=== PATIENT | male | born 1975 ===

== ENCOUNTER 2019-01-10 10:44 | Inpatient (IN) | payer MEDICAID ==
--- NOTE | 2019-01-10 10:53 | ED PDOC ---
Arrival/HPI - General Chief Complaint: Psychiatric Evaluation Time Seen by Provider: 01/10/19 10:45 Historian: Patient - History of Present Illness Narrative History of Present Illness (Text): 01/10/19 10:51 43 year old male with PMH of depression and bipolar disorder presents to the emergency department as psychiatric transfer from [facility] for admission to the psychiatric floor. Pt accepted by psychiatrist Dr. Abdullahi cosby. Pt has been having thoughts of hurting himself and others for the last few months and has a plan but is unwilling to disclose. He has no outpatient psychiatric followup at this time. Pt has no physical complaints. Denies substance abuse, hallucinations, fever, chills, abdominal pain, nausea, vomiting, chest pain, SOB, headache, or any other associated symptoms. Past Medical History - Provider Review Nursing Documentation Reviewed: Yes - Cardiac Hx Cardiac Disorders: No - Pulmonary Hx Respiratory Disorders: No - Neurological Hx Neurological Disorder: No - HEENT Hx HEENT Disorder: No - Renal Hx Renal Disorder: No - Endocrine/Metabolic Hx Endocrine Disorders: No - Hematological/Oncological Hx Blood Disorders: No - Integumentary Hx Dermatological Disorder: No - Musculoskeletal/Rheumatological Hx Musculoskeletal Disorders: No - Gastrointestinal Hx Gastrointestinal Disorders: No - Genitourinary/Gynecological Hx Genitourinary Disorders: No - Psychiatric Hx Bipolar Disorder: Yes Hx Depression: Yes Hx Substance Use: Yes Family/Social History - Physician Review Nursing Documentation Reviewed: Yes Family/Social History: No Known Family HX Smoking Status: Former Smoker Hx Alcohol Use: Yes Frequency of alcohol use: Socially Hx Substance Use: Yes Allergies/Home Meds Allergies/Adverse Reactions: Allergies No Known Allergies Allergy (Verified 01/10/19 10:48) Home Medications: Home Meds Medication Instructions Recorded Confirmed No Known Home Med 01/10/19 01/10/19 Review of Systems - Review of Systems Constitutional: Normal. absent: Fatigue, Fevers Eyes: Normal. absent: Vision Changes, Photophobia ENT: Normal. absent: Sore Throat, Sinus Congestion Respiratory: Normal. absent: SOB, Cough Cardiovascular: Normal. absent: Chest Pain, Palpitations Gastrointestinal: Normal. absent: Abdominal Pain, Nausea, Vomiting Genitourinary Male: Normal. absent: Dysuria, Frequency Musculoskeletal: Normal. absent: Back Pain, Neck Pain Skin: Normal. absent: Rash, Skin Lesions, Laceration, Abscess Neurological: Normal. absent: Headache, Dizziness Psychiatric: Depression, Suicidal Ideation Physical Exam Vital Signs Reviewed: Yes Temperature: Afebrile Blood Pressure: Normal Pulse: Regular Respiratory Rate: Normal Appearance: Positive for: Well-Appearing, Non-Toxic, Comfortable Pain Distress: None Mental Status: Positive for: Alert and Oriented X 3 - Systems Exam Head: Present: Atraumatic, Normocephalic Pupils: Present: PERRL Extroacular Muscles: Present: EOMI Conjunctiva: Present: Normal Mouth: Present: Moist Mucous Membranes Neck: Present: Normal Range of Motion. No: Meningeal Signs Respiratory/Chest: Present: Clear to Auscultation, Good Air Exchange. No: Respiratory Distress, Accessory Muscle Use Cardiovascular: Present: Regular Rate and Rhythm, Normal S1, S2, Peripheal Pulses Present Abdomen: Present: Normal Bowel Sounds. No: Tenderness, Distention, Peritoneal Signs, Rebound, Guarding Back: Present: Normal Inspection. No: CVA Tenderness Upper Extremity: Present: Normal Inspection, Normal ROM, NORMAL PULSES, Neurovascularly Intact, Capillary Refill < 2s. No: Cyanosis, Edema, Temperature Abnormalties Lower Extremity: Present: Normal Inspection, NORMAL PULSES, Normal ROM, Neurovascularly Intact, Capillary Refill < 2 s. No: Edema, Temperature Abnorma lties Neurological: Present: GCS=15, CN II-XII Intact, Speech Normal, Motor Func Grossly Intact, Normal Sensory Function, Gait Normal Skin: Present: Warm, Dry, Normal Color. No: Rashes Psychiatric: Present: Alert, Oriented x 3, Depressed Mood, Suicidal Ideation, Homicidal Ideation Medical Decision Making ED Course and Treatment: Initial Plan: * Chart Review 10:55 Reviewed diagnostic testing, CXR, EKG from [facility]. No acute findings. Patient has no physical complaints at this time. Patient is medically cleared for psychiatric admission. - Lab Interpretations I have reviewed the lab results: Yes Disposition/Present on Arrival - Present on Arrival Any Indicators Present on Arrival: No History of DVT/PE: No History of Uncontrolled Diabetes: No Urinary Catheter: No History of Decub. Ulcer: No History Surgical Site Infection Following: None - Disposition Have Diagnosis and Disposition been Completed?: Yes Diagnosis: Depression, Suicidal ideation Disposition: HOME/ ROUTINE Disposition Time: 11:00 Condition: STABLE
[2019-01-10 10:54] VITALS: O2SAT 96
[2019-01-10] MEDS ORDERED: Magnesium Hydroxide Susp 30 ml UD PO PRN (12:26)
[2019-01-10] MEDS ORDERED: Alum-Mag Hydrox-Simethicone Susp (30 mL) PO PRN (12:26)
[2019-01-10] MEDS ORDERED: DiphenhydrAMINE 50 mg/ml Inj IM PRN (12:33)
[2019-01-10 14:27] VITALS: BMI 21.2
[2019-01-10] MEDS: Amoxicillin-Clav 500-125 mg Tab PO SCH ×2 (15:46→22:05)
[2019-01-10] MEDS: Promethazine DM 6.25 mg-15 mg/5 ml Syrup PO PRN (15:48)
--- NOTE | 2019-01-10 17:04 | PCM.BM ---
<FranciscoCarlito - Last Filed: 01/10/19 17:01> Treatment Plan Problems - Problems identified on initial assessmt Anxiety Related to Substance Abuse Date Initiated: 01/10/19 Time Initiated: 13:00 Assessment reference: NA Status: Active Priority: 1 Feelings of Worthlessness Date Initiated: 01/10/19 Time Initiated: 13:00 Assessment reference: NA Status: Active Priority: 3 Hopelessness/Helplessness Date Initiated: 01/10/19 Time Initiated: 13:00 Assessment reference: NA Status: Active Priority: 2 Altered Sleep Patterns Date Initiated: 01/10/19 Time Initiated: 13:00 Assessment reference: NA Status: Active Priority: 4 Ineffective Coping Date Initiated: 01/10/19 Time Initiated: 13:00 Assessment reference: NA Status: Active Priority: 5 Treatment assets and liabiliti Patient Assests: cooperative, negotiates basic needs, cognitively intact, good interpersonal skills Patient Liabilities: poor support system, substance abuse, medical problems - Milieu Protocol Maintain good personal hygiene: daily Encourage regular showers, daily Remind patient to perform daily oral care, every shift Assist patient to perform ADL's Maintain personal safety: every shift Educate patient to report safety concerns to staff, every shift Monitor environment for contraband/sharps Medication safety: Monitor for expected outcome, potential side effects: every shift, Assess barriers to learning: every shift, Assess readiness for medication education: every shift Family Contact Family involvement: Famliy/SO not involved Family contact: Patient declines to allow family contact at present - Goals for Treatment Patient goals for treatment: to reduce racing thoughts which drive patient to hurt self with drugs. Discharge/Continuing Care - Education Needs Education Needs: Patient Medication, Patient Diagnosis/Disease Process, Patient Coping Skills, Patient Anger Management skills, Patient Placement options, Patient Community resources, Patient Activities of Daily Living, Patient Pain, Patient Nutrition, Patient Uses of Medical Equipment, Patient Health Practices/Safety, Patient Personal Hygiene/Grooming, Patient Aftercare Safety Plan - Discharge Discharge Criteria: Tolerates medication w/o severe side effects <Agnieszka Leyva - Last Filed: 01/11/19 11:56> Family Contact Family involvement: Famliy/SO not involved <Amanda Lafleur - Last Filed: 01/11/19 15:18> - Diagnosis (1) Bipolar disorder Status: Acute Interventions: 01/11/19 15:17 Psychoeducation Psychopharmacology/adjustment of medications as needed/ monitoring possible side effects Monitor blood level of mood stabilizers Evaluate pt on daily basis Compliance with medications and follow up appointments Suicide and homicide risk assessment and prevention, coping strategies, safety plan Relapse prevention Reduction of symptoms Improve functional status Family involvement As outpatient: cognitive behavioral therapy (2) Opioid use disorder Status: Acute Interventions: 01/11/19 15:17 Maintaining sobriety Relapse prevention Possible rehabilitation Motivational interviewing 12-step programs: AA meetings
--- NOTE | 2019-01-11 00:32 | CON ---
DATE: 01/10/2019 I was called to the Psychiatric unit to see this young man medically. HISTORY OF PRESENT ILLNESS: He has got multiple issues besides having a very nasty cough. He is bipolar, suicidal, depressed, heroin abuse history, insomnia, hepatitis C history. I believe he wanted to talk, but I did the best I could. He is depressed and suicidal. He was sent over from another hospital I understand. He is a 43-year-old white man with tattoos all over his body and face. PAST MEDICAL HISTORY: He has a past medical history of depression, bipolar. He came from [facility] about thoughts of hurting himself. Never had outpatient followup. He does deny substance abuse at this time. No hallucinations. He does have a very bad cough with congestion. He is depressed, bipolar, history of substance abuse. FAMILY HISTORY: Unknown family history. SOCIAL HISTORY: A former smoker. He still drinks alcohol and substance abuse as of now he tells us. ALLERGIES: NO KNOWN ALLERGIES. MEDICATIONS: No known home medications. He is not taking anything. REVIEW OF SYSTEMS: He is just not feeling well. He is not sure if he has fever or sweats, or just chills , but he is not feeling well. No vision or hearing changes. No sore throat, congestion. He has got cough with lots of phlegm. No chest pain or palpitations. No nausea, vomiting, constipation or diarrhea. No problems urinating. No back pain or neck pain. No rashes or ulcers that he knows of. No headache or dizziness. He is depressed. He is suicidal. PHYSICAL EXAMINATION: GENERAL: He is asking to take a shower as we speak, he will let me finish though. He is in his room, a little jittery. He is nontoxic, comfortable. A very big cough. Alert and oriented x3. VITAL SIGNS: He has 99.3 temp, 86 pulse, 109/65 blood pressure, 18 respiratory rate, and 96% O2 sat on room air. HEENT: Head is atraumatic and normocephalic. Extraocular muscles are intact. Pupils reactive to light and accommodation. Throat is red, dry. NECK: Supple. No JVD. No meningeal signs. LUNGS: Congested bilaterally, changes with cough, sounds like a very bad bronchitis. HEART: Regular rate. Normal S1, S2. ABDOMEN: Soft, nontender. Positive bowel sounds. No guarding, no rebound or CVA tenderness. EXTREMITIES: No edema. SKIN: He has got multiple tattoos all over his body. Also tattoos on his face. NEUROLOGIC: GCS is 15. Cranial nerves II through XII grossly intact. Normal motor function. Tongue is midline. He can close his right eye, he can clench his teeth. Alert and oriented x3. PSYCHIATRIC: He is very depressed. He tells me he is suicidal, but not homicidal. LABORATORY DATA: He has no lab tests. I have ordered lab tests. MEDICATIONS: He is currently on Ativan, Benadryl, Catapres, Haldol, Maalox, milk of magnesia, Phenergan DM, and Augmentin, which I added, Seroquel, Tylenol. ASSESSMENT: He has suicidal ideation, depression, insomnia, upper respiratory infection versus bronchitis, bipolar. He has started the psychiatric medications, he is also on Augmentin and Phenergan. PLAN: I am checking his labs tomorrow and encourage with him to eat and participate. Hopefully he will start to feel better soon. Juice Champagne DO MTDJatin
[2019-01-11] MEDS: Amoxicillin-Clav 500-125 mg Tab PO SCH ×3 (05:24→21:49)
[2019-01-11 07:59] LABS: HEMOGLOBIN 15.6 g/dL (14.0-18.0); MEAN CELL VOLUME 85.2 fl (80.0-105.0); MEAN CORPUSCULAR HEMOGLOBIN 28.1 pg (25.0-35.0); MEAN PLATELET VOLUME 8.9 fl (7.0-11.0); RBC 5.55 10^6/uL (3.5-6.1); RED CELL DISTRIBUTION WIDTH 14.7 % (11.5-14.5); WHITE BLOOD COUNT 10.2 10^3/uL (4.5-11.0)
[2019-01-11 08:08] LABS: ALBUMIN 4.7 g/dL (3.0-4.8); AST/SGOT 27 U/L (17-59); BLOOD UREA NITROGEN 17 mg/dL (7-21); GFR NON-AFRICAN AMERICAN > 60; GLUCOSE,FASTING 106 mg/dL (65-110); HDL CHOLESTEROL 45 mg/dL (29-60)
[2019-01-11 08:11] LABS: ALT/SGPT < 6 U/L (7-56)
[2019-01-11 08:19] LABS: LDL CHOLESTEROL 78 mg/dL (0-129)
[2019-01-11] MEDS: Promethazine DM 6.25 mg-15 mg/5 ml Syrup PO PRN (08:39)
--- NOTE | 2019-01-11 12:55 | PN ---
DATE: 01/11/2019 SUBJECTIVE: I saw him in the psychiatric floor. He slept well. He is still not doing well overall. He has got suicidal ideation, bipolar, and he has got a very bad upper respiratory infection. He is also depressed. He is currently on Ativan, Augmentin, Benadryl, Catapres, Haldol, Maalox, milk of magnesia, Nicoderm patch, Phenergan, Seroquel, and Tylenol. He only had one dose of Augmentin that was yesterday. Hopefully, he will get two today and start to improve. PHYSICAL EXAMINATION: VITAL SIGNS: He has a 97.3 temperature, 84 pulse, 105/75 blood pressure, and 18 respiratory rate. HEENT: Atraumatic, normocephalic. Throat is mildly red. HEART: Regular rate. LUNGS: Congested bilaterally like a bad bronchitis sound. ABDOMEN: Soft, nontender, positive bowel sounds. EXTREMITIES: No edema. He has got tattoos all over his body and face. LABORATORY DATA: He has a 10.2 white count, 15.6 hemoglobin, 47.3 hematocrit with 214 platelets. Sodium 142, potassium 4.3, BUN 17, creatinine 0.9, GFR is greater than 60, sugar is 106. Calcium is 10. Total bili is 0.4, AST is 27, AST is 6, alk phos 85, total protein is 7.6, albumin 4.7, globulin 4.9, triglycerides 74, cholesterol 147, LDL is 78, HDL is 45, TSH is 1.94. ASSESSMENT AND PLAN: As per Psychiatry, we will continue with aggressive treatment and care, work on his depression and suicidal thoughts and hopefully get his bronchitis improved. Juice Champagne DO
--- NOTE | 2019-01-11 15:17 | PCM.PSYCH ---
Initial Psychiatric Evaluation - Initial Psychiatric Evaluation Type of Admission: Voluntary Legal Status: Capacity Chief Complaint (in patient's own words): "I constantly feel hopeless, I had suicidal thoughts" Patient's Reaction to Hospitalization: Patient was admitted for evaluation stabilization of depressive symptoms, irritability, angry feelings, possible suicidal ideation. History of Present Illness and Precipitating Events: Shortly, patient is 43yo male with reported h/o bipolar disorder, heroin use dis order, treated off psychiatric admissions and suicidal attempts, patient also has history of incarcerations, currently on probation for drug possession, patient was transferred from [facility] for evaluation and stabilization of depressive symptoms and possible suicidal ideations, patient requires further evaluation and stabilization and medication management. Patient was seen today at the treatment team meeting, patient presented with acceptable personal hygiene, good ADLs, has multiple tattoos on his face, appears to carry, but handle interview relatively well, no agitation or aggressi on but patient was providing with "yes or no" answers only, wanted to finish interview as fast as possible. Patient reported that he was sober for past 3 weeks, patient reported that he relapsed on heroin last , January 07, patient reported that he cannot withdrawing from heroin now. pt reported that he has h/o using via IV and snorting, "I used more than 10 bags a day.." Patient denies alcohol consumption, denied any other drug use, reported that he smokes about 1 to 2 packs of cigarettes a day, counseling provided. Patient reported that he was feeling depressed, hopeless, helpless, worthless and guilty, she also reported that he had suicidal ideation with no clear plan or intent to kill himself, patient reported that he has difficulty to fall asleep and to stay asleep. Patient also reported that he constantly feels angry, irritable, "it is irritating even when somewone is eating" Patient denied hearing voices, denied hearing things, denied paranoid ideations, patient does not appear to be psychotic but guarded. As per nursing report patient has history of hearing command type hallucinations "kill self, to help others". Patient reports feeling anxious. Patient reported about 4-5 previous psych admissions, last was in [facility] in [place] one year ago due to having suicidal ideation. Patient reports he only takes medications when in shelter or [facility]ci. Patient reports he was last in shelter 2 months ago for 8 days. Patient reports he's on probation. Patient reports his aboriginal liaison officer is aware that he's hospitalized. Medical history: Patient reports having Hep C and does not have any physical symptoms from it. Patient reports having no other medical problems. Patient was seen by Dr. Champagne, was prescribed medication for cough. Family h/o: pt lost mother to suicide when patient was [age] years old, plus patients sister of overdose three years ago. 01/11/19 07:30 01/11/19 07:30 Lab Results 01/11/19 07:30: WBC 10.2, RBC 5.55, Hgb 15.6, Hct 47.3, MCV 85.2, MCH 28.1, MCHC 33.0, RDW 14.7 H, Plt Count 214, MPV 8.9 01/11/19 07:30: TSH 3rd Generation 1.94 01/11/19 07:30: Sodium 142, Potassium 4.3, Chloride 105, Carbon Dioxide 26, Anion Gap 16, BUN 17, Creatinine 0.9, Est GFR ( Amer) > 60, Est GFR (Non- Af Amer) > 60, Random Glucose 106, Fasting Glucose 106, Calcium 10.0, Total Bilirubin 0.4, AST 27, ALT < 6 L, Alkaline Phosphatase 85, Total Protein 9.6 H, Albumin 4.7, Globulin 4.9, Albumin/Globulin Ratio 1.0 L, Triglycerides 74, Cholesterol 147, LDL Cholesterol Direct 78, HDL Cholesterol 45 Vital Signs Temp Pulse Resp BP Pulse Ox 01/11/19 07:00 97.3 F L 111 H 18 105/75 01/10/19 15:57 84 118/69 01/10/19 13:14 89 109/65 01/10/19 11:40 98.8 F 89 20 109/65 01/10/19 10:52 99.3 F 86 18 119/59 L 96 The patient failed the outpatient lower level of care: Yes Current Medications: Active Medications Generic Name Dose Route Start Last Admin Trade Name Freq PRN Reason Stop Dose Admin Acetaminophen 650 mg 01/10/19 12:26 Tylenol 325mg Tab PO Q6H PRN Pain, moderate (4-7) Al Hydrox/Mg Hydrox/Simethicone 30 ml 01/10/19 12:26 Maalox Plus 30 Ml PO DAILY PRN Indigestion / Heartburn Amoxicillin/Clavulanate Potassium 1 tab 01/10/19 14:30 01/11/19 05:24 Augmentin 500 Mg-125 Mg Tab PO 1 tab Q8 ADAM Administration Protocol Clonidine HCl 0.1 mg 01/10/19 12:27 01/10/19 13:14 Catapres PO 0.1 mg Q8H PRN Administration Withdrawal Symptoms Diphenhydramine HCl 50 mg 01/10/19 12:29 01/10/19 13:14 Benadryl PO 50 mg Q6H PRN Administration Side Effects, Allergy Symptoms Diphenhydramine HCl 50 mg 01/10/19 12:33 Benadryl IM Q6H PRN Side Effects Haloperidol 5 mg 01/10/19 12:39 Haldol PO Q6H PRN Agitation Protocol Haloperidol Lactate 5 mg 01/10/19 12:41 Haldol IM Q6H PRN Severe Agitation Protocol Lorazepam 1 mg 01/10/19 12:30 01/11/19 05:31 Ativan PO 1 mg Q6H ADAM Administration Protocol Lorazepam 2 mg 01/10/19 12:35 01/10/19 15:47 Ativan PO 2 mg Q6H PRN Administration Anxiety Protocol Lorazepam 2 mg 01/10/19 12:37 Ativan IM Q6H PRN Severe Anxiety,SevereAgitation Protocol Magnesium Hydroxide 30 ml 01/10/19 12:26 Milk Of Magnesia PO DAILY PRN Constipation Nicotine 1 patch 01/10/19 17:27 01/11/19 08:35 Nicoderm Cq TD 1 patch DAILY ADAM Administration Promethazine HCl/Dextromethorphan 5 ml 01/10/19 14:29 01/11/19 08:39 Phenergan Dm Syrup PO 5 ml Q6H PRN Administration Cough Quetiapine Fumarate 25 mg 01/10/19 12:24 01/11/19 08:35 Seroquel PO 25 mg BID ADAM Administration Protocol Quetiapine Fumarate 50 mg 01/10/19 22:00 01/10/19 22:04 Seroquel PO 50 mg HS ADAM Administration Protocol Quetiapine Fumarate 50 mg 01/10/19 12:58 Seroquel PO HS PRN Insomnia Protocol Present on Admission - Present on Admission Any Indicators Present on Admission: No History of DVT/PE: No History of Uncontrolled Diabetes: No Urinary Catheter: No Decubitus Ulcer Present: No Review of Systems - Review of Systems Systems not reviewed;Unavailable: Acuity of Condition - Constitutional Constitutional: As Per HPI - EENT Eyes: As Per HPI Ears: As Per HPI Nose/Mouth/Throat: As Per HPI - Cardiovascular Cardiovascular: As Per HPI - Respiratory Respiratory: As Per HPI - Gastrointestinal Gastrointestinal: As Per HPI - Genitourinary Genitourinary: As Per HPI - Reproductive: Male Reproductive:Male: As Per HPI - Musculoskeletal Musculoskeletal: As Per HPI - Integumentary Integumentary: As Per HPI - Neurological Neurological: As Per HPI - Psychiatric Psychiatric: As Per HPI - Endocrine Endocrine: As Per HPI - Hematologic/Lymphatic Hematologic: As Per HPI Past Patient History - Past Psychiatric History Previous Treatment History: Inpatient Prior Professional Help: See HPI Prior Psychiatric Treatment: See HPI At what hospital: See HPI Duration: See HPI Nature of Treatment: See HPI Explanation of prior treatment: See HPI - PSYCHIATRIC Hx Anxiety: Yes Hx Bipolar Disorder: Yes Hx Depression: Yes Hx Substance Use: Yes - CARDIAC Hx Cardiac Disorders: No - PULMONARY Hx Respiratory Disorders: No - NEUROLOGICAL Hx Neurological Disorder: No - HEENT Hx HEENT Problems: No - RENAL Hx Chronic Kidney Disease: No - ENDOCRINE/METABOLIC Hx Endocrine Disorders: No - HEMATOLOGICAL/ONCOLOGICAL Hx Blood Disorders: No - INTEGUMENTARY Hx Dermatological Problems: No - MUSCULOSKELETAL/RHEUMATOLOGICAL Hx Musculoskeletal Disorders: No - GASTROINTESTINAL Hx Gastrointestinal Disorders: No - GENITOURINARY/GYNECOLOGICAL Hx Genitourinary Disorders: No - SURGICAL HISTORY Hx Surgeries: No - Medical/Surgical History Reviewed & confirmed: by pr Meds Allergies/Adverse Reactions: Allergies Allergy/AdvReac Type Severity Reaction Status Date / Time No Known Allergies Allergy Verified 01/10/19 12:50 Mental Status Examination - Personal Presentation Personal Presentation: Looks stated age - Affect Affect: Constricted, Flat - Motor Activity Motor Activity: Psychomotor Retardation - Reliability in Providing Information Reliability in Providing Information: Poor, due to altered mood - Speech Speech: Organized - Mood Mood: Depressed, Anxious - Formal Thought Process Formal Thought Process: No Impairment - Obsessions/Compulsions Obsessions: No Compulsions: No - Cognitive Functions Orientation: Person, Place, Situation Sensorium: Alert Attention/Concentration: Easily distracted Abstract Thinking: [place] Estimate of Intelligence: Average Judgement: Intact, as evidence by: Insight regarding need for hospitalization - Risk Risk: Self-mutilation, Diminished functioning - Strength & Assets Inventory Strength & Assets Inventory: Life experience, Cooperative - Limitations Limitations: Other (Noncompliance with medications, poor social support) Psychiatric Physical Exam - Physical Exam Reviewed and confirmed: Emergency Department Physical Exam Results - Vital Signs Recent Vital Signs: Last Vital Signs Temp 97.3 F L 01/11/19 07:00 Pulse 111 H 01/11/19 07:00 Resp 18 01/11/19 07:00 BP 105/75 01/11/19 07:00 Pulse Ox 96 01/10/19 10:52 - Labs Result Diagrams: 01/11/19 07:30 01/11/19 07:30 Labs: Laboratory Results - last 24 hr 01/11/19 01/11/19 01/11/19 07:30 07:30 07:30 WBC 10.2 RBC 5.55 Hgb 15.6 Hct 47.3 MCV 85.2 MCH 28.1 MCHC 33.0 RDW 14.7 H Plt Count 214 MPV 8.9 Sodium 142 Potassium 4.3 Chloride 105 Carbon Dioxide 26 Anion Gap 16 BUN 17 Creatinine 0.9 Est GFR ( Amer) > 60 Est GFR (Non-Af Amer) > 60 Random Glucose 106 Fasting Glucose 106 Calcium 10.0 Total Bilirubin 0.4 AST 27 ALT < 6 L Alkaline Phosphatase 85 Total Protein 9.6 H Albumin 4.7 Globulin 4.9 Albumin/Globulin Ratio 1.0 L Triglycerides 74 Cholesterol 147 LDL Cholesterol Direct 78 HDL Cholesterol 45 TSH 3rd Generation 1.94 - EKG Data EKG Interpreted by: ER Physician DSM Plan - DSM 5 DSM 5 Diagnosis: Bipolar disorder as per history, most recent episode mixed, severe Opioid use disorder - Recommended/Plan of Treatment Treatment Recommendations and Plan of Treatment: Milieu/structure/supportive therapy consultation for discharge plan and social issues Med management Antibiotics were prescribed by Dr. Chapmagne Depakote 250 mg twice a day for mood stabilization Prozac 20 mg daily for depression anxiety Gabapentin 300 mg 3 times a day for mood stabilization Risperdal 0.5 mg twice a day and 1 mg in the nighttime for mood stabilization and irritability and impulsivity As needed medications Family involvement Follow up on labs Will monitor closely Pt was educated about risk/benefits and alternatives of medications, coping strategies (safety plan, suicide prevention), relapse prevention, importance of follow up with psychiatrist and therapist, stay away from drugs/alcohol/smoking Projected ELOS: 7 days Prognosis: guarded Discharge Plan and Discharge Criteria: Patient will pose no imminent danger to self or others - Tobacco Cessation Tobacco Use Status for the last 30 days: Heavy User(>=5 cigs &/or cigars/pipes daily) Tobacco Use Treatment FDA-Approved Cessation Medication Provided: Yes - Alcohol or Substance Abuse Does the patient have an Alcohol or Substance Abuse Disorder: Yes Initial Psych Certification - Initial Certification I certify that the inpatient psychiatric facility admission was medically necessary for either: Treatment which could reasonbly be expected to improve pt's condition I estimate of hospitalization is necessary for proper treatment of the patient: 7 Unit of Time: Days My plans for post-hospital care for this patient are: Dual diagnosis program or inpatient rehab
[2019-01-11] MEDS: Divalproex 250 mg DR (BID formulation) PO SCH (15:52)
[2019-01-12] MEDS: Amoxicillin-Clav 500-125 mg Tab PO SCH ×3 (06:08→21:31)
[2019-01-12 07:23] VITALS: RESP 20
[2019-01-12] MEDS: Divalproex 250 mg DR (BID formulation) PO SCH ×2 (09:03→17:33)
--- NOTE | 2019-01-12 13:35 | PN ---
DATE: 01/12/2019 SUBJECTIVE: I saw him in the psychiatric floor. He is eating better. He is actually breathing little bit better. Still coughing but the cough is better. The Augmentin is definitely working. He is on Ativan, Augmentin Benadryl, Catapres Depakote, Haldol, milk of magnesia, Maalox, Neurontin, Phenergan DM, Prozac, Risperdal and Tylenol. He is doing better. He is feeling actually better, little bit more emotionally. I think now that the drugs are coming out of his system. He had suicidal ideation, bipolar, drug abuse, URI. He is definitely improving. His cough is still there but not as bad. He looks also better. PHYSICAL EXAMINATION: VITAL SIGNS: He has a 97.7 temperature, 101 pulse, 121/72 blood pressure, 20 respiratory rate. HEAD: Atraumatic, normocephalic. HEART: Regular rate. LUNGS: Have some congestion, better than the day before. ABDOMEN: Soft. EXTREMITIES: No edema. LABORATORY DATA: He has a 10.2 white count, 13.6 hemoglobin, 214 platelets. Sodium 142, potassium 4.3, BUN 17, creatinine 0.9, GFR is greater than 60, sugar is 106, calcium is 10 and total bili is 0.4. AST is 27, ALT is 6, alk phos 85, total protein 9.6, albumin is 4.7. TSH is 1.94. Nonreactive RPR. I do think he is starting to improve mentally and even with his upper respiratory infection and bronchitis, he is doing better. I encouraged him to participate, take the medications and eat well. Hopefully, he continue to improve. We will follow. Juice Champagne DO
--- NOTE | 2019-01-12 13:48 | CON ---
DATE: 01/12/2019 GASTROENTEROLOGY CONSULTATION REQUESTING PHYSICIAN: Amanda Lafleur MD. HISTORY OF PRESENT ILLNESS: I have been asked to see this 43-year-old male on the psychiatric unit for history of hepatitis C. The patient was admitted to the psychiatric unit with depression, suicidal ideation. He does have a history of bipolar disorder. Recently, he has had a cough with whitish sputum with upper airway congestion. He consumes alcohol on a regular basis and continues to snort heroin; the last time he used heroin was approximately 2 weeks ago. He was told he had hepatitis C over 15 years ago and has never been treated. The patient states that he has not shot up intravenously for several years. He denies any abdominal pain, nausea, vomiting, or jaundice. PAST MEDICAL HISTORY: Past medical history is notable for multi-substance abuse including snorting heroin. He consumes alcohol on a regular basis. FAMILY HISTORY: Noncontributory. REVIEW OF SYSTEMS: A 14-point review of systems is notable for a cough and upper airway congestion. HOME MEDICATIONS: He is not on any medications at home. PHYSICAL EXAMINATION: GENERAL: Well-developed male, lying in bed, in no acute distress. He has multiple tattoos on his neck and arms. VITAL SIGNS: Reveal temperature of 97.7, blood pressure 121/72, heart rate of 101. HEENT: Reveal sclerae to be white. Conjunctivae are pink. NECK: Supple. CHEST: Reveals scattered coarse rales. HEART: Reveals a regular rate and rhythm. ABDOMEN: Soft, nontender. There is no hepatomegaly. EXTREMITIES: Show old skin tracts from previous intravenous drug use. No pedal edema. LABORATORY DATA: Reveals white blood cell count of 10.2, hemoglobin 15.6, platelet count of 214,000, AST 27, ALT 6, total bilirubin normal, total protein 9.6, albumin of 4.7. IMPRESSION: This is a 43-year-old male with a history of hepatitis C, admitted to the psychiatric unit with suicidal ideation, depression, history of bipolar disorder. The patient continues to drink alcohol on a regular basis as well as snort heroin. As long as he continues to drink and use drugs, he is not a candidate for hepatitis C treatment at this time; he needs to abstain from illicit drugs for at least 6 months. RECOMMENDATIONS: 1. We will check hepatitis C RNA quantitative and genotype. 2. We will request an abdominal ultrasound to rule out cirrhosis of the liver. Shubham Meier MD
--- NOTE | 2019-01-12 15:11 | US ---
Date of service: 01/12/2019 HISTORY: R/O cirrhosis COMPARISON: None. TECHNIQUE: Sonographic evaluation of the right upper quadrant of the abdomen. FINDINGS: LIVER: Measures 13.9 cm in length. There is diffuse increased echogenicity of the liver parenchyma. No mass. No intrahepatic bile duct dilatation. Portal vein is patent with normal direction of flow. GALLBLADDER: There are no gallstones, wall thickening or pericholecystic fluid. The sonographic Friedman's sign is negative. COMMON BILE DUCT: Measures 4.5 mm. No stones. No dilatation. PANCREAS: Unremarkable as visualized. No mass. No ductal dilatation. RIGHT KIDNEY: Measures 11.0 cm in length. Normal echogenicity. No calculus, mass, or hydronephrosis. AORTA: No aneurysmal dilatation. IVC: Unremarkable. OTHER FINDINGS: None . IMPRESSION: Diffuse increased echogenicity in the liver may reflect hepatic steatosis however parenchymal infectious/ inflammatory etiologies cannot be entirely excluded. Clinical and laboratory correlation is advised. No cholelithiasis or biliary dilatation.
--- NOTE | 2019-01-12 16:42 | PCM.PYCHPN ---
Psychiatric Progress Note - Psychiatric Progress Note Patient seen today, length of contact: 30 minutes Patient Chief Complaint: "I feel more relaxed..." Problems Identified/Issues Discussed: Treatment plan, risk/benefits/alternatives of medications, aftercare plan, sa fety plan, medical issues, side effects of the medications. Medical Problems: See HPI Patient was seen by medical team as well as GI team Diagnostic Results: Ultrasound of abdomen obtained, see result 01/11/19 07:30 01/11/19 07:30 Lab Results 01/11/19 07:30: WBC 10.2, RBC 5.55, Hgb 15.6, Hct 47.3, MCV 85.2, MCH 28.1, MCHC 33.0, RDW 14.7 H, Plt Count 214, MPV 8.9 01/11/19 07:30: RPR Nonreactive 01/11/19 07:30: TSH 3rd Generation 1.94 01/11/19 07:30: Sodium 142, Potassium 4.3, Chloride 105, Carbon Dioxide 26, Anion Gap 16, BUN 17, Creatinine 0.9, Est GFR ( Amer) > 60, Est GFR (Non- Af Amer) > 60, Random Glucose 106, Fasting Glucose 106, Calcium 10.0, Total Bilirubin 0.4, AST 27, ALT < 6 L, Alkaline Phosphatase 85, Total Protein 9.6 H, Albumin 4.7, Globulin 4.9, Albumin/Globulin Ratio 1.0 L, Triglycerides 74, Cholesterol 147, LDL Cholesterol Direct 78, HDL Cholesterol 45 Vital Signs Temp Pulse Resp BP Pulse Ox 01/12/19 16:03 103 H 112/66 01/12/19 07:22 97.7 F 101 H 20 121/72 01/11/19 15:48 113 H 115/70 01/11/19 07:00 97.3 F L 111 H 18 105/75 01/10/19 15:57 84 118/69 01/10/19 13:14 89 109/65 01/10/19 11:40 98.8 F 89 20 109/65 01/10/19 10:52 99.3 F 86 18 119/59 L 96 DSM 5 Symptoms Update: Shortly, patient is 43yo male with reported h/o bipolar disorder, heroin use disorder, treated off psychiatric admissions and suicidal attempts, patient also has history of incarcerations, currently on probation for drug possession, patient was transferred from [facility] for evaluation and stabilization of depressive symptoms and possible suicidal ideations, patient requires further evaluation and stabilization and medication management. Patient was seen today Nursing station, patient presented with slight improvement off his hygiene, patient appears to be more relaxed, was willing to discuss his symptoms. Patient reports that that he feels "little bit better", patient reported that he slept well, patient reports that he still feels irritable but able to control his impulses, patient reported that he feels more relaxed. Patient complained that he has diarrhea, reported to have loose bowel movement 3 times, patient was seen by medical team as well as GI team, patient was advised to let this law writer if symptoms will be not improved. As per staff patient appears to be depressed, compliant with her medications, no agitation or aggression. So far patient tolerates medications well, no side effects observed or reported, aims 0, no EPS. Impression: DSM 5 Diagnosis: Bipolar disorder as per history, most recent episode mixed, severe Opioid use disorder Medication Change: Yes (Started yesterday) Medical Record Reviewed: Yes Consults ordered or reviewed: Medical consult appreciated GI consult appreciated Mental Status Examination - Cognitive Function Orientation: Person, Place, Situation Memory: Intact Attention: Poor Concentration: Poor Association: WNL Fund of Knowledge: Poor - Mood Mood: Depressed, Anxious - Affect Affect: Constricted, Flat - Formal Thought Process Formal Thought Process: No Impairment - Suicidal Ideation Suicidal Ideation: No - Homicidal Ideation Homicidal Ideation: No Goal/Treatment Plan - Goal/Treatment Plan Need for Continued Stay: Remain at risks for inpatient hospitalization, Severe depression anxiety, Discharge may exacerbated symptoms, Severe functional impairment Progress Toward Problem(s) and Goals/Treatment Plan: Milieu/structure/supportive therapy Medical consult and GI consult appreciated consultation for discharge plan and social issues Med management Antibiotics were prescribed by Dr. Champagne Depakote 250 mg twice a day for mood stabilization Prozac 20 mg daily for depression anxiety Gabapentin 300 mg 3 times a day for mood stabilization Risperdal 0.5 mg twice a day and 1 mg in the nighttime for mood stabilization and irritability and impulsivity As needed medications Family involvement Follow up on labs Will monitor closely Pt was educated about risk/benefits and alternatives of medications, coping strategies (safety plan, suicide prevention), relapse prevention, importance of follow up with psychiatrist and therapist, stay away from drugs/alcohol/smoking Estimated Date of D/C: 01/18/19
[2019-01-13] MEDS: Amoxicillin-Clav 500-125 mg Tab PO SCH ×3 (05:32→21:32)
[2019-01-13] MEDS: Divalproex 250 mg DR (BID formulation) PO SCH ×2 (08:40→17:24)
--- NOTE | 2019-01-13 11:49 | PN ---
DATE: 01/13/2019 SUBJECTIVE: The patient has thrombosis on this morning. He was doing much better. He is feeling much better. He is on Ativan, Augmentin, Benadryl, Catapres, Depakote, Haldol, Maalox, Milk of Magnesia, Neurontin, Nicoderm, Phenergan, Prozac, Risperdal, Tylenol. He is not coughing as much. He is feeling better. He does not feel as sick since he has been on the Augmentin which is good. He also feeling a little bit mentally improved also. PHYSICAL EXAMINATION: VITAL SIGNS: Temperature 97.7, pulse 96, blood pressure 106/68, respiratory rate 20. He has also had an appetite. HEAD: Atraumatic, normocephalic. HEART: Regular rate. LUNGS: Decreased breath sounds, but clear. No wheezes or rhonchi or rales. the cough is much better. ABDOMEN: Soft. EXTREMITIES: No edema. ASSESSMENT AND PLAN: Continue with the antibiotics. He has a consultation with Dr. Meier, java jsf developer. He had abdominal ultrasound that showed diffuse increased echogenicity of the liver, may reflect hepatic steatosis and java jsf developer commented, we will check hepatitis screen. We will continue with aggressive treatment and care. No new blood test yet as per Psychiatry and GI and I do believe his bronchitis is getting better. Juice Champagne DO MTDD
--- NOTE | 2019-01-13 16:30 | PCM.PYCHPN ---
Psychiatric Progress Note - Psychiatric Progress Note Patient seen today, length of contact: 30 minutes Patient Chief Complaint: "I feel more relaxed..." Problems Identified/Issues Discussed: Treatment plan, risk/benefits/alternatives of medications, aftercare plan, sa fety plan, medical issues, side effects of the medications. Medical Problems: See HPI Patient was seen by medical team as well as GI team Diagnostic Results: Ultrasound of abdomen obtained, see result 01/11/19 07:30 01/11/19 07:30 Lab Results 01/11/19 07:30: WBC 10.2, RBC 5.55, Hgb 15.6, Hct 47.3, MCV 85.2, MCH 28.1, MCHC 33.0, RDW 14.7 H, Plt Count 214, MPV 8.9 01/11/19 07:30: RPR Nonreactive 01/11/19 07:30: TSH 3rd Generation 1.94 01/11/19 07:30: Sodium 142, Potassium 4.3, Chloride 105, Carbon Dioxide 26, Anion Gap 16, BUN 17, Creatinine 0.9, Est GFR ( Amer) > 60, Est GFR (Non- Af Amer) > 60, Random Glucose 106, Fasting Glucose 106, Calcium 10.0, Total Bilirubin 0.4, AST 27, ALT < 6 L, Alkaline Phosphatase 85, Total Protein 9.6 H, Albumin 4.7, Globulin 4.9, Albumin/Globulin Ratio 1.0 L, Triglycerides 74, Cholesterol 147, LDL Cholesterol Direct 78, HDL Cholesterol 45 Vital Signs Temp Pulse Resp BP Pulse Ox 01/12/19 16:03 103 H 112/66 01/12/19 07:22 97.7 F 101 H 20 121/72 01/11/19 15:48 113 H 115/70 01/11/19 07:00 97.3 F L 111 H 18 105/75 01/10/19 15:57 84 118/69 01/10/19 13:14 89 109/65 01/10/19 11:40 98.8 F 89 20 109/65 01/10/19 10:52 99.3 F 86 18 119/59 L 96 DSM 5 Symptoms Update: Shortly, patient is 43yo male with reported h/o bipolar disorder, heroin use disorder, treated off psychiatric admissions and suicidal attempts, patient also has history of incarcerations, currently on probation for drug possession, patient was transferred from [facility] for evaluation and stabilization of depressive symptoms and possible suicidal ideations, patient requires further evaluation and stabilization and medication management. Patient was seen today next to the Nursing station, patient presented with slight improvement of his hygiene, patient appears to be more relaxed, was willing to discuss his symptoms. pt reported to have a good night sleep, pt was appreciative of treatment groups, which pt attends regularly. As per staff patient is more pleasant, less depressed, compliant with her medications, no agitation or aggression. So far patient tolerates medications well, no side effects observed or reported, aims 0, no EPS. Impression: DSM 5 Diagnosis: Bipolar disorder as per history, most recent episode mixed, severe Opioid use disorder Medication Change: Yes Medical Record Reviewed: Yes Mental Status Examination - Cognitive Function Orientation: Person, Place, Situation Memory: Intact Attention: Poor (Some improvement) Concentration: WNL Association: WN Fund of Knowledge: Poor - Mood Mood: Depressed (Some improvement "I feel better"), Anxious - Affect Affect: Constricted, Flat - Formal Thought Process Formal Thought Process: No Impairment - Suicidal Ideation Suicidal Ideation: No - Homicidal Ideation Homicidal Ideation: No Goal/Treatment Plan - Goal/Treatment Plan Need for Continued Stay: Remain at risks for inpatient hospitalization, Severe depression anxiety, Discharge may exacerbated symptoms, Severe functional impairment Progress Toward Problem(s) and Goals/Treatment Plan: Milieu/structure/supportive therapy Medical consult and GI consult appreciated consultation for discharge plan and social issues Med management Antibiotics were prescribed by Dr. Champagne for another 4 days Depakote 250 mg twice a day for mood stabilization Depakote level tomorrow at the morning time Prozac 20 mg daily for depression anxiety Gabapentin 300 mg 3 times a day for mood stabilization Risperdal 0.5 mg twice a day and 1 mg in the nighttime for mood stabilization and irritability and impulsivity As needed medications Family involvement Follow up on labs Will monitor closely Pt was educated about risk/benefits and alternatives of medications, coping strategies (safety plan, suicide prevention), relapse prevention, importance of follow up with psychiatrist and therapist, stay away from drugs/alcohol/smoking Estimated Date of D/C: 01/18/19
[2019-01-14] MEDS: Amoxicillin-Clav 500-125 mg Tab PO SCH ×2 (05:45→13:31)
[2019-01-14 07:26] VITALS: BP 117/74; PULSE 101; TEMP 97.9
[2019-01-14] MEDS: Divalproex 250 mg DR (BID formulation) PO SCH (08:21)
--- NOTE | 2019-01-14 13:12 | PN ---
DATE: 01/14/2019 SUBJECTIVE: I saw him in the psychiatric floor. He is doing much better. He is coughing, but the bronchitis is much improving. He has another 4 more days of Augmentin to go until I think he will be totally fine. He is on Ativan, Augmentin, Benadryl, Catapres, Depakote, Haldol, MiraLax, milk of magnesia, Neurontin, Nicoderm, Phenergan, Prozac, risperidone, and Tylenol. PHYSICAL EXAMINATION: VITAL SIGNS: He has got a 97.9 temperature, 101 pulse, 117/74 blood pressure, 20 respiratory rate. HEAD: Head is atraumatic, normocephalic. HEART: Regular rate. LUNGS: Much improved. Even when he cough, he has less congestion. Clearing up the bronchitis. ABDOMEN: Soft. EXTREMITIES: No edema. ASSESSMENT AND PLAN: He is feeling much, much better. He tells me 85-90% improved. He has to finish the Augmentin. He had labs on the 01/11/2019, he did well. I understand he is probably being discharged today. He will continue with the Augmentin in the outpatient for 4 more days. I discussed with him not doing anymore, bad things, alcohol or smoking things like that. He needs to be healthy, exercise and take the medication and follow up in the outpatient. Hopefully, he will be able to discharge home. Juice Champagne DO
--- NOTE | 2019-01-14 16:22 | PCM.PYCHDC ---
Mental Status Examination - Mental Status Examination Orientation: Person, Place, Situation, Time Memory: Intact Mood: Neutral Affect: Constricted (But reactive and congruent) Speech: Appropriate Attention: WNL Concentration: WNL Association: WNL Fund of Knowledge: WNL Formal Thought Process: No Impairment Description of patient's judgement and insight: Patient has improvement into his mental illness medical issues, she was calm and cooperative, socially appropriate, no agitation or aggression. Psychotic Thoughts and Behaviors: Patient denied psychotic symptoms, patient does not present to be psychotic. Suicidal Ideation: No Current Homicidal Ideation?: No Plan: Patient denied thoughts of harming self. Discharge Plan - Discharge Note Reason for Hospitalization: Patient was admitted for evaluation stabilization of depressive symptoms, irritability, angry feelings, possible suicidal ideation. Psychiatric History (includes Medical, Family, Personal Hx): See HPI Laboratory Data: Abnormal Lab Results 01/14/19 08:00 Valproic Acid 38 L Consultations:: List each consultation separately and include: 1. Reason for request. 2. Findings. 3. Follow-up Consultations: Medical consult appreciated GI consult appreciated Patient is aware that he needs to stay sober for 6 months in order to get treatment for his hepatitis C. Summary of Hospital Course include:: 1. Description of specific treatment plan utilized for patients during their course of treatmen. 2. Summarize the time- course for resolution of acute symptoms and/or regressed behaviors. 3. Describe issues identified and worked on during hospitalization. 4. Describe medication utilized. 5. Describe medical problems identified and treated. 6. Reassessment of suicide risk Summary of Hospital Course: Shortly, patient is 43yo male with reported h/o bipolar disorder, heroin use disorder, treated off psychiatric admissions and suicidal attempts, patient also has history of incarcerations, currently on probation for drug possession, patient was transferred from [facility] for evaluation and stabilization of depressive symptoms and possible suicidal ideations, patient required further evaluation and stabilization and medication management. At the time of admission patient presented to be depressed, disengaged, irritab le, angry. Please see admission note for more detailed information. Patient was stabilized on the following medications: Depakote 250 mg twice a day for mood stabilization Prozac 20 mg daily for depression anxiety Neurontin 300 mg 3 times a day Ativan was tapered down Risperdal 1 mg twice a day for irritability and mood stabilization Patient tolerated medications well, no side effects observed or reported, aims 0, no EPS. Overall patient improved significantly, brighter, patient denied being irritable or depressed, sleep improved, patient was visible on the unit, attending groups, had good appetite and sleep. Patient reached maximum effect from this acute hospitalization, deemed ready for discharge. At the time of discharge patient stated to pose no imminent danger to self or others, patient has future oriented plans. Patient will be followed up at [facility] [place] in [place], [place]. In case patient will need to obtain results of studies pending at discharge, patient was provided with contact information of Psychiatric Inpatient unit [phone] as well as Medical Record Department [phone], as well as [facility] team [phone]. Nicotine patch was provided Naltrexone treatment is not indicated at this time because patient was not sober for the past month Counseling about smoking and opioid cessation provided AA meetings as well [place] [facility] information was provided by the pt was provided with prescriptions see medication reconciliation form Pt was educated about safety plan in case of worsening of symptoms or in case of suicidal or homicidal ideation call 911 or go to the nearest ER, also was educated to take meds as prescribed and stay away from drugs, pt verbalized understanding. 01/11/19 07:30 01/11/19 07:30 Lab Results 01/11/19 07:30: WBC 10.2, RBC 5.55, Hgb 15.6, Hct 47.3, MCV 85.2, MCH 28.1, MCHC 33.0, RDW 14.7 H, Plt Count 214, MPV 8.9 01/11/19 07:30: TSH 3rd Generation 1.94 01/11/19 07:30: Sodium 142, Potassium 4.3, Chloride 105, Carbon Dioxide 26, Anion Gap 16, BUN 17, Creatinine 0.9, Est GFR ( Amer) > 60, Est GFR (Non- Af Amer) > 60, Random Glucose 106, Fasting Glucose 106, Calcium 10.0, Total Bilirubin 0.4, AST 27, ALT < 6 L, Alkaline Phosphatase 85, Total Protein 9.6 H, Albumin 4.7, Globulin 4.9, Albumin/Globulin Ratio 1.0 L, Triglycerides 74, Cholesterol 147, LDL Cholesterol Direct 78, HDL Cholesterol 45 Vital Signs Temp Pulse Resp BP Pulse Ox 01/11/19 07:00 97.3 F L 111 H 18 105/75 01/10/19 15:57 84 118/69 01/10/19 13:14 89 109/65 01/10/19 11:40 98.8 F 89 20 109/65 01/10/19 10:52 99.3 F 86 18 119/59 L 96 - Diagnosis (1) Bipolar disorder Status: Acute Priority: High (2) Opioid use disorder Status: Chronic Priority: Medium - Final Diagnosis (DSM 5) Condition upon Discharge: STABLE Disposition: HOME/ ROUTINE Follow-up Treatment Plan: Patient will be followed up at [facility] [place] in [place], [place]. Prescriptions/Medication Reconciliation: Amoxicillin/Clavulanate [Augmentin 500 MG-125 MG Tab] 1 tab PO Q8 #12 tab Divalproex [Depakote DR (*BID*)] 250 mg PO BID #30 tcp FLUoxetine [Prozac] 20 mg PO DAILY #14 cap Gabapentin [Neurontin] 300 mg PO TID #45 cap Nicotine 21 mg/24 hr [Nicoderm Cq] 1 patch TD DAILY #14 patch risperiDONE [RisperDAL Tab] 1 mg PO AMHS #30 tab - Tobacco Cessation Tobacco Use Status for the last 30 days: Heavy User(>=5 cigs &/or cigars/pipes daily) Tobacco Use Treatment Practical Counseling Provided: Yes Tobacco Use Treatment FDA-Approved Cessation Medication Provided: Yes Type of Medication Provided: Nicoderm CQ Smoking Cessation Prescription was given: Yes - Alcohol or Substance Abuse Does the patient have an Alcohol or Substance Abuse Disorder: Yes A prescription for an FDA-approved medication for alcohol and drug dependence was given to the patient at discharge: No If no,reason for not providing: Not indicated at this time, patient was not sober for past month, heroine - Antipsychotic Medications Pt discharged on 2 or more routine antipsychotic medications: No
== END 2019-01-14 14:32 | disposition home or self-care (01) | DRG 430 ==
LOC: ED 10:44 → ERH 11:00 → PSYC 11:28
PROVIDERS: ADMIT Psychiatry & Neurology Psychiatry; ATTEND Psychiatry & Neurology Psychiatry
DX: F31.9 Bipolar disorder, unspecified (principal); F11.10 Opioid abuse, uncomplicated; F41.8 Other specified anxiety disorders; G47.00 Insomnia, unspecified; J06.9 Acute upper respiratory infection, unspecified; J40 Bronchitis, not specified as acute or chronic; R45.851 Suicidal ideations; Z65.3 Problems related to other legal circumstances; Z87.891 Personal history of nicotine dependence